=== PATIENT | male | born 1970 | race Caucasian/White ===

== ENCOUNTER 2018-10-05 14:42 | Emergency (ER) | payer OTHER ==
[2018-10-05] MEDS: KETOROLAC 30 MG INJ IM (17:55)
[2018-10-05 18:22] LABS: C-REACTIVE PROTEIN < 0.5 mg/dl (0.0-0.9); CREATINE KINASE 98 IU/L (23-200)
[2018-10-05 18:28] LABS: CK INDEX 1.6; CK-MB 1.54 ng/ml (0.0-2.4)
[2018-10-05 18:32] LABS: TROPONIN-I < 0.012 ng/ml (0.000-0.120)
[2018-10-05 19:03] LABS: ERYTHROCYTE SEDIMENTATION RATE 2 mm/Hr (0-15)
[2018-10-05] MEDS: DEXAMETHASONE 10 MG/ML 1 ML INJ IM (19:12)
== END 2018-10-05 19:28 | disposition home or self-care (01) ==
LOC: FTE 14:42
DX: M19.012 Primary osteoarthritis, left shoulder (principal); E11.9 Type 2 diabetes mellitus without complications; R07.81 Pleurodynia
CPT/HCPCS: 29105; 73030; 82550; 82553; 84484; 85651; 86140; 93005; 96372; 99285-25

== ENCOUNTER 2018-11-06 09:07 | Emergency (ER) | payer OTHER ==
[2018-11-06] MEDS: KETOROLAC 30 MG INJ IM (10:17)
== END 2018-11-06 11:20 | disposition home or self-care (01) ==
LOC: FTE 09:07
DX: M62.830 Muscle spasm of back (principal); E11.9 Type 2 diabetes mellitus without complications
CPT/HCPCS: 96372; 99284-25